=== PATIENT | female | born 1950 | race Caucasian/White ===

== ENCOUNTER 2021-02-10 08:17 | Day surgery (SDC) | payer MEDICARE, OTHER ==
--- NOTE | 2021-02-10 07:50 | HP ---
DATE OF SURGERY: 02/10/2021 HISTORY OF PRESENT ILLNESS: The patient is a 70 year-old last colonoscopy several years ago. I am not sure if it was 20 years ago. Unknown if she had any polyps. She denied any bloody stools. Denied any change in bowel movements. No pain. Family history negative for colon cancer. She is in need of follow up screening colonoscopy. I feel she is a candidate. PAST MEDICAL HISTORY: Chronic lung disease. Hypothyroidism. Reflux. Hyperlipidemia. Anxiety. Hiatal hernia in the past. PAST SURGICAL HISTORY: Both shoulder surgery. Right knee surgery. Cholecystectomy Hysterectomy and tubal in the past as well. MEDICATIONS: Includes ipratropium, Albuterol, hydrochlorothiazide, levothyroxine, duloxetine, Simvastatin, Prolia, metoprolol, Benefiber, multivitamin, aspirin ALLERGIES: NKDA. FAMILY HISTORY: Negative for colon cancer. SOCIAL HISTORY: No smoking or alcohol abuse. REVIEW OF SYSTEMS: Fourteen systems reviewed negative or noncontributory as above and per preadmission questionnaire. No chest pain or palpitations. PHYSICAL EXAMINATION: GENERAL: No acute distress. HEENT: Sclerae nonicteric. NECK: No JVD. CHEST: Equal excursion, breath sounds symmetrical. No audible wheeze currently. CVS: Regular rate and rhythm. ABDOMEN: Soft. No peritoneal signs. EXTREMITIES: No significant edema. NEURO: Alert, oriented, moving extremities symmetrically. RECTAL: Deferred timed to endoscopy exam. PSYCH: Appropriate mood and affect. IMPRESSION: Need for follow up screening colonoscopy. I feel the patient is a candidate. Shown the risk sheet, explained the procedure in detail including but not limited to bleeding or infection, risk of bowel injury or perforation possibly requiring open procedure, risk of missed or nondiagnosis or incomplete exam possibly requiring barium enema, other studies or procedures, general risk of anesthesia or sedation, risk of bowel prep but not limited to, consent obtained. Will proceed with outpatient follow up screening colonoscopy as an outpatient.
[2021-02-10] MEDS ORDERED: Lactated Ringers 1,000 ML IV SCH (08:30)
[2021-02-10] MEDS ORDERED: DUONEB 0.5-3 MG/3 ml Neb IH ONE ×2 (11:10→11:12)
[2021-02-10] MEDS ORDERED: DIPRIVAN 200 MG/20 ML IV ONE (11:13)
[2021-02-10] MEDS ORDERED: Lactated Ringers 1,000 ML IV ONE (11:16)
--- NOTE | 2021-02-10 11:33 | XRAY ---
Indication: Possible aspiration. Comparison: None Portable chest demonstrates mild left midlung subsegmental atelectasis/scarring. Remaining heart and lungs unremarkable with incidental moderate sized hiatal hernia. Bony thorax intact with osteopenia and degenerative changes.
[2021-02-10 12:17] VITALS: PULSE 64; O2SAT 96
[2021-02-10 12:50] VITALS: BP 126/70
--- NOTE | 2021-02-11 08:48 | OP ---
SURGERY DATE/TIME: 02/10/2021 1043 PREOPERATIVE DIAGNOSIS: Need for screening colonoscopy. POSTOPERATIVE DIAGNOSES: 1) Small polyps. 2) Fair bowel prep. 3) Few small diverticula. PROCEDURES: 1) Colonoscopy to cecum. 2) Hot snare polypectomy small transverse colon polyp. 3) Hot biopsy polypectomy additional small transverse colon polyp. 4) Hot biopsy polypectomy piecemeal removal of small ascending colon polyp. SURGEON: Dr. Edvin Barreto. LOG SAWYER: Paul Dahl, Medical Student III. ANESTHESIA: MAC. ESTIMATED BLOOD LOSS: Minimal. INDICATIONS: As noted above. Risks and benefits explained in detail but not limited to and consent obtained. DESCRIPTION OF PROCEDURE AND FINDINGS: The patient is taken to the endoscopy room. MAC anesthesia induced. After official time out and no disagreement with planned procedure, digital rectal exam did not reveal any rectal masses. She did have some small internal and external hemorrhoids. Video colonoscope inserted and passed up the tortuous sigmoid, descending, transverse and ascending colon requiring positioning on her back eventually. With external pressure the scope was finally able to reach the cecum. Appendiceal orifice and valve were photo documented. Prep overall was fair. There was a little bit of liquidy semisolid stool just slightly limiting the exam for small lesions. Scope had been withdrawn over six and a half minutes. On the way in a small polyp in the transverse colon about 3 mm in size removed with hot snare polypectomy with brief bursts of cautery. The staff was looking through the specimen in the suction trap. On the way back on withdrawal of 6 minutes and 30 seconds, the patient did have an episode of emesis. Please see the anesthesia notes. The scope is slowly and carefully withdrawn over the 6 minutes and 30 seconds. Again, prep was fair. ASA Class II. Small polyp in the proximal half of the ascending colon was removed with hot biopsy forceps which was about 2.5 mm in size but removed in two pieces as the patient was coughing from her emesis at that time. With brief bursts of cautery it appeared to have adequate hemostasis. The scope is slowly and carefully withdrawn. A second small polyp in the transverse colon was then removed with hot biopsy forceps with brief bursts of cautery. Otherwise, she had a few tiny diverticula. There were signs of any large polyps, masses or obstructing lesions. The scope is withdrawn. There were no immediate complications from the patient's emesis. Please see anesthesia notes. There was no family available to discuss the findings with here. I will see her back in the office next week.
== END 2021-02-10 12:49 | disposition home or self-care (01) ==
LOC: SDC 08:17
PROVIDERS: ATTEND Surgery
DX: Z12.11 Encounter for screening for malignant neoplasm of colon (principal); K57.30 Diverticulosis of large intestine without perforation or abscess without bleeding; K63.5 Polyp of colon; Z79.899 Other long term (current) drug therapy; J98.4 Other disorders of lung
CPT/HCPCS: 71045; 88305; 94640; 99100; J2704; A9270-GY